=== PATIENT | male | born 1995 ===

== ENCOUNTER 2017-02-24 05:32 | Emergency (ER) | payer BC, SELFPAY ==
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
== END 2017-02-24 06:45 | disposition home or self-care (01) ==
LOC: ERS 05:32
DX: S83.91XA Sprain of unspecified site of right knee, initial encounter (principal); F17.200 Nicotine dependence, unspecified, uncomplicated; V53.6XXA Passenger in pick-up truck or van injured in collision with car, pick-up truck or van in traffic accident, initial encounter
CPT/HCPCS: 99406